=== PATIENT | female | born 1970 ===

== ENCOUNTER 2018-05-08 06:24 | Day surgery (SDC) | payer OTHER ==
[~2018-05-08 06:24] MED LIST: CYTOMEL25 MCG PO; ELAVIL PO; GABAPENTIN100 MG PO; HYZAAR 100-251 EACH PO; SYNTHROID200 MCG PO; ZANAFLEX4 M1 PO
== END 2018-05-08 12:50 | disposition home or self-care (01) ==
LOC: CIR.AMB 06:24
DX: M75.121 Complete rotator cuff tear or rupture of right shoulder, not specified as traumatic (principal)